=== PATIENT | female | born 1950 | race Caucasian/White ===

== ENCOUNTER 2023-07-07 08:10 | Emergency (ER) | payer MEDICARE, SELFPAY ==
[2023-07-07 08:18] VITALS: BP 145/68; PULSE 95; RESP 20; TEMP 36.6; O2SAT 100
--- NOTE | 2023-07-07 08:40 | ED.GENADULT ---
HPI - General Adult General Chief complaint: Dental/Oral Stated complaint: Abcesson left side of jaw Source: patient Mode of arrival: ambulatory Limitations: no limitations History of Present Illness HPI narrative: Patient presents for evaluation of left-sided facial swelling and pain. Her last few days she has noted some pain over yesterday developed swelling along the left mandible. She states she has a history of dental abscess and this feels similar. Pain is 8/10 in severity, without descriptive quality. No fever, chills, nausea, vomiting. She took Tylenol for her symptoms. In the past dental abscesses have spontaneously drained. She is diabetic. Last a1c was 6.7. Related Data Home Medications Medication Instructions Recorded Confirmed chlorthalidone 25 mg tablet mg 07/07/23 lisinopril 40 mg tablet mg 07/07/23 metformin 500 mg tablet mg 07/07/23 simvastatin 40 mg tablet mg 07/07/23 Allergies Allergy/AdvReac Type Severity Reaction Status Date / Time No Known Allergies Allergy Verified 07/07/23 08:23 Review of Systems Review of Systems: CONSTITUTIONAL: Denies fever, chills, or sweats. EYES: Denies visual changes, redness, or discharge. ENT: Reports left sided facial pain and swelling. CARDIOVASCULAR: Denies chest pain, palpitations, or edema. RESPIRATORY: Denies cough or dyspnea. GASTROINTESTINAL: Denies abdominal pain, nausea, vomiting, or diarrhea. GENITOURINARY: Denies dysuria or hematuria. SKIN: Denies rash or itching. MUSCULOSKELETAL: Denies back pain, joint pain, or myalgia. NEUROLOGIC: Denies headache, numbness, dizziness, or weakness. PSYCHIATRIC: Denies anxiety or depression. [facility] Past Medical History Medical History Dental abscess Diabetes Hypertension Surgical History Surgical History History of cholecystectomy Family History Family History Mother Family history non-contributory Social History Social History Living arrangements: alone Gender identity (if verbalized by the patient): Female Sexual Orientation (if Verbalized by the Patient): Straight or Heterosexual Spiritual care concerns: No Exam Narrative: GENERAL: Well-appearing, well-nourished, and in no acute distress. HEAD: Normocephalic, atraumatic. EYES: PERRLA and EOMI. ENT: Nares clear, no rhinorrhea or epistaxis. Mucous membranes moist. Oropharynx without tonsillar hypertrophy exudate or other lesions. Bilateral TMs pearly cintron nonbulging. There is swelling along the left side of the mandible. There is several absent teeth. There is a very small area of fluctuance in the lower left gumline adjacent to site of absent teeth NECK: Supple. No adenopathy or masses. No carotid bruits or JVD CHEST: Clear to auscultation. No respiratory distress. No wheezes rales or rhonchi HEART: Regular rate and rhythm. No murmur heard. Normal peripheral pulses. ABDOMEN: Soft, nontender, nondistended, normal active bowel sounds. EXTREMITIES: Normal range of motion. No edema. SKIN: Warm, dry, no rash. NEURO: No focal deficits. Alert and oriented x3. PSYCH: Normal mood and affect. Course Course Emergency Course: This is a 72-year-old female who presented for evaluation of left-sided facial pain and swelling. Area of fluctuance in the gumline is extremely small and I am not confident that I can drain it. I did offer to send her to the emergency department for CT imaging. She declined. Will treat with penicillin, ibuprofen and Cow[place]ill. Follow up with primary provider and dentist. Go to the emergency department for worsening symptoms. Patient is in agreement with plan of care. Level of Care: Express Care Visit Vital Signs Vital signs: Vital Signs Temperature 36.6 C
== END 2023-07-07 08:44 | disposition home or self-care (01) ==
PROVIDERS: Emergency Provider Nurse Practitioner; PCP Internal Medicine
DX: K04.7 Periapical abscess without sinus (principal); E11.9 Type 2 diabetes mellitus without complications; I10 Essential (primary) hypertension
CPT/HCPCS: 99213; G0463

== ENCOUNTER 2023-08-06 08:55 | Emergency (ER) | payer MEDICARE, SELFPAY ==
[2023-08-06 09:02] VITALS: BP 146/62; PULSE 88; RESP 18; TEMP 36.2; O2SAT 97
--- NOTE | 2023-08-06 09:41 | ED.GENADULT ---
HPI - General Adult General Chief complaint: Ear Stated complaint: Ear Pain Source: patient Mode of arrival: ambulatory Limitations: no limitations History of Present Illness HPI narrative: Patient presents for evaluation of right postauricular pain for last 2 days. Symptoms are intermittent, occurring once every thirty minutes and lasting a few seconds. She describes the pain as sharp, without numerical rating. She has had similar symptoms in the past but never had a formal diagnosis provided. She denies any hearing loss, tinnitus, drainage from the ear. No fever, chills, nausea, vomiting, skin changes. She had some leftover hydrocodone from a toothache which she tried. It did seem to help. She denies any visual changes, motor deficits, speech problems or other neurological symptoms. She is diabetic. Home BS in 110's. She has an appointment to see her PCP two days from now for her symptoms. She did have some right sided cervical lymphadenopathy yesterday, which seems to have improved. Related Data Home Medications Medication Instructions Recorded Confirmed chlorthalidone 25 mg tablet mg 07/07/23 lisinopril 40 mg tablet mg 07/07/23 metformin 500 mg tablet mg 07/07/23 simvastatin 40 mg tablet mg 07/07/23 Allergies Allergy/AdvReac Type Severity Reaction Status Date / Time No Known Allergies Allergy Verified 07/07/23 08:23 Review of Systems Review of Systems: CONSTITUTIONAL: Denies fever, chills, or sweats. EYES: Denies visual changes, redness, or discharge. ENT: Reports pain in the right postauricular region. Reports recent right-sided cervical lymphadenopathy, now improved. Denies rhinorrhea, congestion, sore throat CARDIOVASCULAR: Denies chest pain, palpitations, or edema. RESPIRATORY: Denies cough or dyspnea. GASTROINTESTINAL: Denies abdominal pain, nausea, vomiting, or diarrhea. GENITOURINARY: Denies dysuria or hematuria. SKIN: Denies rash or itching. MUSCULOSKELETAL: Denies back pain, joint pain, or myalgia. NEUROLOGIC: Denies headache, numbness, dizziness, or weakness. PSYCHIATRIC: Denies anxiety or depression. [facility] Past Medical History Medical History Dental abscess Diabetes Hypertension Surgical History Surgical History History of cholecystectomy Family History Family History Mother Family history non-contributory Social History Social History Living arrangements: alone Gender identity (if verbalized by the patient): Female Sexual Orientation (if Verbalized by the Patient): Straight or Heterosexual Spiritual care concerns: No Exam Narrative: GENERAL: Well-appearing, well-nourished, and in no acute distress. HEAD: Normocephalic, atraumatic. No tenderness over the mastoid bone. No temporal bruits EYES: PERRLA and EOMI. ENT: Nares clear, no rhinorrhea or epistaxis. Mucous membranes moist. Oropharynx without tonsillar hypertrophy exudate or other lesions. Bilateral TMs pearly cintron nonbulging. Trace amount of middle ear fluid on the right. NECK: Supple. No adenopathy or masses. No carotid bruits or JVD CHEST: Clear to auscultation. No respiratory distress. No wheezes rales or rhonchi HEART: Regular rate and rhythm. No murmur heard. Normal peripheral pulses. ABDOMEN: Soft, nontender, nondistended, normal active bowel sounds. EXTREMITIES: Normal range of motion. No edema. SKIN: Warm, dry, no rash. NEURO: No focal deficits. Alert and oriented x3. PSYCH: Normal mood and affect. Course Course Emergency Course: This is a 72-year-old female who presented for evaluation of right postauricular pain. She has no skin changes. No tenderness over the mastoid bone indicative of mastoiditis. No evidence of otitis media. She did repor
== END 2023-08-06 09:49 | disposition home or self-care (01) ==
PROVIDERS: Emergency Provider Nurse Practitioner; PCP Internal Medicine
DX: H92.01 Otalgia, right ear (principal); R59.0 Localized enlarged lymph nodes; E11.9 Type 2 diabetes mellitus without complications; I10 Essential (primary) hypertension
CPT/HCPCS: 99213; G0463